=== PATIENT | male | born 1965 | race Hispanic/Latino ===

== ENCOUNTER → 2022-04-16 | Day surgery (SDC) | payer MEDICARE, OTHER ==
[~2022-04-16] MED LIST: ATORVASTATIN CA20 MG PO; IOPAMIDOL 200 MG/ML 20 ML VIAL IT ONE; LIDOCAINE HCL 1% 30ML-PF VIAL ONE; LIDOCAINE HCL 2% LOCAL INJ 5 ML SDV VIAL INJ ONE; MIDAZOLAM HCL 2 MG/2 ML VIAL ONE; OMEPRAZOLE40 MG PO; POVIDONE IODINE 0.05% 0.05 % ML PO ONE; PROPOFOL IV EMULSION 10 MG/ML 20 ML VIAL ONE; TRIAMCINOLONE ACET 40 MG/ML VIAL ONE
[2022-04-16 07:25] VITALS: BP 132/73
== END | disposition home or self-care (01) ==
LOC: OR 07:22
PROVIDERS: ATTEND Physical Medicine & Rehabilitation Pain Medicine
DX: M46.1 Sacroiliitis, not elsewhere classified (principal); M47.896 Other spondylosis, lumbar region; M54.16 Radiculopathy, lumbar region; Z98.1 Arthrodesis status; M25.562 Pain in left knee; E78.5 Hyperlipidemia, unspecified; K21.9 Gastro-esophageal reflux disease without esophagitis; F41.9 Anxiety disorder, unspecified; Z01.810 Encounter for preprocedural cardiovascular examination; Z01.812 Encounter for preprocedural laboratory examination; Z20.822 Contact with and (suspected) exposure to COVID-19; Z79.899 Other long term (current) drug therapy; Z68.39 Body mass index [BMI] 39.0-39.9, adult; Z85.46 Personal history of malignant neoplasm of prostate
CPT/HCPCS: 77003; 93005; G0260; J2001 ×2; J2250; J2704; J3301; Q9967; U0002